=== PATIENT | female | born 1950 ===

== ENCOUNTER 2021-08-04 09:52 | Outpatient (CLI) ==
--- NOTE | 2021-08-04 14:30 | XRAY Report ---
PROCEDURE: Knee 3 View RT INDICATIONS: INTERNAL DERANGEMENT OF RIGHT KNEE TECHNIQUE: 3 views of the right knee(s) were acquired. COMPARISON: None. FINDINGS: Bones: No fractures or dislocations. No suspicious bony lesions. Lateral patellofemoral as well as medial and lateral compartmental joint space narrowing moderate. Soft tissues: No joint effusion. No suspicious soft tissue calcifications. IMPRESSION: No evidence of fracture or joint effusion. Moderate joint space narrowing without marginal osteophyte Reviewed by: Obey Amaya MD on 08/04/2021 1:29 PM AKWILLIAM Approved by: Obey Amaya MD on 08/04/2021 1:29 PM AKWILLIAM Station ID: [id number]
== END 2021-08-04 09:53 | disposition home or self-care (01) ==
LOC: DI.S 09:52
PROVIDERS: ATTEND Emergency Medicine
DX: M23.91 Unspecified internal derangement of right knee (principal); M17.11 Unilateral primary osteoarthritis, right knee